=== PATIENT | female | born 1945 | race Caucasian/White ===

== ENCOUNTER 2017-08-16 06:39 | Outpatient (CLI) | payer MEDICARE ==
[~2017-08-16] VITALS: Ht 182.9 cm; Wt 89.8 kg
[2017-08-16] MEDS ORDERED: ARIMIDEX1 MG PO (08:08)
[2017-08-16] MEDS ORDERED: ELIQUIS5 MG PO (08:08)
[2017-08-16] MEDS ORDERED: COREG 12.5MG12.5 MG PO (08:09)
[2017-08-16] MEDS ORDERED: LEVOTHYROXINE150 MCG PO (08:09)
[2017-08-16] MEDS ORDERED: ENTRESTO PO (08:11)
[2017-08-16] MEDS ORDERED: FARXIGA10 MG PO (08:11)
[2017-08-16] MEDS ORDERED: JANUVIA50 MG PO (08:12)
[2017-08-16] MEDS ORDERED: CRESTOR5 MG PO (08:12)
[2017-08-16] MEDS ORDERED: METFORMIN HCL500 MG PO (08:12)
[2017-08-17] MEDS ORDERED: ELIQUIS5 MG PO (09:11)
[2017-08-17] MEDS ORDERED: LEVAQUIN500 MG PO (09:13)
[2017-08-17] MEDS ORDERED: LORCET 5-325 M1 EACH PO (09:15)
== END 2017-08-17 09:36 | disposition home or self-care (01) ==
LOC: CATH 06:39 → PROG CARE 14:25 → CATH 08-17 09:36
DX: Z45.018 Encounter for adjustment and management of other part of cardiac pacemaker (principal); I50.22 Chronic systolic (congestive) heart failure; I42.0 Dilated cardiomyopathy; I48.2 Chronic atrial fibrillation; I44.7 Left bundle-branch block, unspecified; I49.5 Sick sinus syndrome; E11.9 Type 2 diabetes mellitus without complications; E03.9 Hypothyroidism, unspecified; Z85.3 Personal history of malignant neoplasm of breast; Z88.0 Allergy status to penicillin; Z88.8 Allergy status to other drugs, medicaments and biological substances; Z79.84 Long term (current) use of oral hypoglycemic drugs; Z79.02 Long term (current) use of antithrombotics/antiplatelets; Z79.899 Other long term (current) drug therapy
CPT/HCPCS: 33225; 33233; 33249; 71010; 82962; 93005; 93641; C1769; C1777; C1882; C1900; J1200; J1644; J2250; J2550; J3010; J3370; J7040; J7050; J7070; Q9965